=== PATIENT | male | born 1935 | race Caucasian/White ===

== ENCOUNTER 2018-04-23 03:43 | Emergency (ER) | payer OTHER ==
[~2018-04-23] VITALS: Ht 182.8 cm; Wt 86.2 kg
--- NOTE | ~2018-04-23 | EKG ---
[place], [place] ELECTROCARDIOGRAM REPORT NAME: GUILLE LOZA UNIT #: [id number] ROOM: DOCTOR: EPIPHANY DRAFT REPORT BIRTHDATE: [birth year] [facility] Test Date: 2018-04-23 Test Time: 04:02:24 Pat Name: GUILLE MILLERANAN Department: ER Room: 2 Gender: M [employer] Head: Alan Portillo : 1935 Requested By: MADHU UP Order Number: [id number] Reading MD: Guille Young MD Measurements Intervals [place] Rate: 66 P: 18 PA: 224 QRS: -21 QRSD: 136 T: 26 QT: 426 QTc: 447 Interpretive Statements Sinus rhythm Prolonged PA interval Right bundle branch block Borderline ST elevation, lateral leads Electronically Signed On 04-23-2018 9:32:48 PDT by Guille Young MD CM:EKGRPT:ELECTROCARDIOGRAM REPORT [id number] MADHU HERNANDEZ DRAFT REPORT MADHU UP DO
[~2018-04-23 03:43] MED LIST: ASPIRIN81 M1 PO; LIPITOR20 MG PO; Metformin Hydr500 MG PO
[2018-04-23 04:22] LABS: BASO % 0.2 % (0.0-1.0); EOS # 0.3 10*3/uL (0.0-0.4); EOS % 3.4 % (1.0-4.0); HEMATOCRIT 39.6 % (42.0-52.0); HEMOGLOBIN 13.4 g/dl (14.0-18.0); LYMPH # 2.7 10*3/uL (1.3-4.4); LYMPH % 28.2 % (27.0-41.0); MEAN CELL VOLUME 94.3 fl (80.0-94.0); MEAN CORPUSCULAR HGB 31.9 pg (27.0-31.0); MEAN CORPUSCULAR HGB CONC 33.8 g/dl (33.0-37.0); MEAN PLATELET VOLUME 11.1 fl (9.6-12.3); MONO % 9.9 % (3.0-9.0); NEUT # 5.6 10*3/uL (2.3-7.9); PLATELET COUNT AUTOMATED 193 10*3/uL (130-400); RED CELL DISTRI WIDTH 12.2 % (0-14.5); WHITE BLOOD COUNT 9.7 10*3/uL (4.8-10.8)
[2018-04-23 04:33] LABS: ACT PARTIAL THROMBO TIME 23.5 SECONDS (20.8-31.5); INTERNATIONAL NORM RATIO 0.9 (2.0-3.5)
[2018-04-23 04:40] LABS: ALBUMIN 3.1 gm/dl (3.1-4.5); ALKALINE PHOSPHATASE 77 U/L (45-117); BUN 13 mg/dl (7-24); CHLORIDE 106 mmol/L (98-107); CREATININE 0.88 mg/dL (0.70-1.30); POTASSIUM 3.9 mmol/L (3.5-5.1); SGOT/AST 17 IU/L (3-35); SGPT/ALT 23 U/L (12-78); SODIUM 141 mmol/L (136-145); TOTAL PROTEIN 6.6 gm/dL (6.4-8.2)
[2018-04-23 04:42] LABS: TROPONIN I < 0.015 ng/ml (<0.045)
== END 2018-04-23 05:38 | disposition short-term general hospital (02) ==
LOC: ED 03:43
PROVIDERS: Student in an Organized Health Care Education/Training Program
DX: I63.9 Cerebral infarction, unspecified (principal); Z79.82 Long term (current) use of aspirin; Z79.899 Other long term (current) drug therapy

== ENCOUNTER 2019-02-16 15:05 | Emergency (ER) | payer OTHER ==
[~2019-02-16] VITALS: Ht 172.7 cm; Wt 97.1 kg
[~2019-02-16 15:05] MED LIST changes: +ALBUTEROL2.5 MG/0.5 INH; +AUGMENTIN 875-875 MG PO; +Amaryl2 MG PO; +ELIQUIS5 M1 PO; +EQ STOOL SOFTE1 EACH PO; +FERROUS SULFAT325 MG PO; +FUROSEMIDE10 MG/1 M1 IV; +GABAPENTIN100 M2 PO; +Ipratropium Brom3 ML INH; +LASIX40 MG PO; +LIDODERM1 EACH T; +LOPRESSOR25 MG PO; +NATURE'S BLEND F1 MG PO; +NYSTOP60 GM T; +ROXICODONE5 MG PO; +VITAMIN C500 M4 PO; +VITAMIN D31000 UNI1 PO; +ZOLOFT50 MG PO
[2019-02-16] MEDS ORDERED: CEPHALEXIN500 M1 PO (17:17)
[2019-02-16] MEDS ORDERED: AUGMENTIN 875875 MG PO (17:20)
== END 2019-02-16 17:49 | disposition home or self-care (01) ==
LOC: ED 15:05
DX: S02.2XXA Fracture of nasal bones, initial encounter for closed fracture (principal); S00.83XA Contusion of other part of head, initial encounter; R10.2 Pelvic and perineal pain; H57.11 Ocular pain, right eye; Z79.899 Other long term (current) drug therapy; Z90.49 Acquired absence of other specified parts of digestive tract; W07.XXXA Fall from chair, initial encounter; Y93.89 Activity, other specified; Y92.531 Health care provider office as the place of occurrence of the external cause; Y99.8 Other external cause status